=== PATIENT | male | born 1985 | race Caucasian/White ===

== ENCOUNTER 2017-09-20 15:32 | Emergency (ER) | payer SELFPAY ==
[~2017-09-20] VITALS: Ht 182.9 cm; Wt 68.2 kg
[~2017-09-20 15:32] MED LIST: CYCL10TA PO; GABA600T PO; SOMA350T PO; XANA2TAB2 PO
[2017-09-20 16:42] VITALS: BP 140/71; PULSE 98; RESP 20; TEMP 97.7; O2SAT 100
--- NOTE | 2017-09-20 21:37 | PD ---
Physical Exam Date Seen by Provider: Sep 20, 2017 Time Seen by Provider: 18:00 Narrative 32 year old male patient presents to the emergency department for evaluation of anxiety and dental pain. Patient states his daughter is in the pediatric unit and just had surgery which is making him anxious. He states that he has been out of his Xanax for a couple of weeks and has been unable to get a refill. Current pain is 9/10. Mild to moderate severity Data Data Last Documented VS Vital Signs Date Time Temp Pulse Resp B/P (MAP) Pulse Ox O2 Delivery O2 Flow Rate FiO2 09/20/17 16:42 97.7 98 20 140/71 (94) 100 MDM Supervised Visit with COLT: No Narrative Course 32-year-old male presents to the emergency department for evaluation of anxiety and dental pain. Patient is initially seen in triage. He left AGAINST MEDICAL ADVICE before he can be moved to medical bed. Diagnosis Primary Impression: Left against medical advice Patient Instructions: General Instructions Departure Forms: Tests/Procedures Disposition: 07 AGAINST MEDICAL ADVICE Brenda Mack Sep 20, 2017 21:36
[2017-09-21] MEDS ORDERED: VIST25CA PO (01:51)
[2017-09-21] MEDS ORDERED: PERI0.126 SWISH-SPIT (01:51)
== END 2017-09-20 18:24 | disposition left against medical advice (07) ==
LOC: NED 15:32
DX: F41.9 Anxiety disorder, unspecified (principal)
CPT/HCPCS: 99281

== ENCOUNTER 2017-09-20 23:40 | Emergency (ER) | payer SELFPAY ==
[~2017-09-20] VITALS: Ht 182.9 cm; Wt 68.0 kg
[2017-09-20 23:58] VITALS: BP 137/72; PULSE 90; RESP 16; TEMP 98.3; O2SAT 98
--- NOTE | 2017-09-21 01:42 | PD ---
HPI Chief Complaint: Anxiety Time Seen by Provider: 01:37 Travel History International Travel<30 days: No Contact w/Intl Traveler<30days: No Traveled to known affect area: No History of Present Illness HPI 32-year-old male with history of anxiety presents the emergency department requesting a refill of his Xanax. He states that he takes 2 mg 3 times a day, regularly even though it is supposed to be as needed. He tells me that his daughter is sick on the sixth floor and he is having panic attacks. He also reports multiple painful teeth and he needs something for pain for these. This includes 4 wisdom teeth and 2 other molars. Denies any trauma. States that the "just went bad yesterday." Denies any fevers or chills. Has no other symptoms to report. PFSH Past Medical History Anxiety: Yes Depression: Yes Diminished Hearing: No Musculoskeletal: Yes (HERNIATED DISC) Neurologic: Yes (back pain) Immunizations Current: No Seizures: Yes Tetanus Vaccination: < 5 Years Influenza Vaccination: Yes Past Surgical History Other Surgery: Yes (TBI) Social History Alcohol Use: No Tobacco Use: Yes (1/2 PPD) Substance Use: Yes Allergies-Medications (Allergen,Severity, Reaction): Coded Allergies: No Known Allergies (Unverified , 06/08/16) Reported Meds & Prescriptions Reported Meds & Active Scripts Active Vistaril (Hydroxyzine Pamoate) 25 Mg Cap 25 Mg PO QID PRN Peridex Liq (Chlorhexidine Gluconate (Mouth) Liq) 0.12% Soln 15 Ml SWISH-SPIT BID Reported Gabapentin 600 Mg Tab 600 Mg PO TID Soma (Carisoprodol) 350 Mg Tab 350 Mg PO BID Xanax (Alprazolam) 2 Mg Tab 2 Mg PO BID PRN Review of Systems Except as stated in HPI: all other systems reviewed are Neg Physical Exam Narrative GENERAL: Well-nourished, well-developed male patient, no acute distress. SKIN: Focused skin assessment warm/dry. HEAD: Normocephalic. No erythema or edema. EYES: No scleral icterus. No injection or drainage. DENTAL: Generalized poor dentition. No gingival erythema or edema. No malocclusion. NECK: Supple, trachea midline. No JVD or lymphadenopathy. CARDIOVASCULAR: Regular rate and rhythm without murmurs, gallops, or rubs. RESPIRATORY: Breath sounds equal bilaterally. No accessory muscle use. GASTROINTESTINAL: Abdomen soft, non-tender, nondistended. MUSCULOSKELETAL: No cyanosis, or edema. BACK: Nontender without obvious deformity. No CVA tenderness. Data Data Last Documented VS Vital Signs Date Time Temp Pulse Resp B/P (MAP) Pulse Ox O2 Delivery O2 Flow Rate FiO2 09/21/17 01:48 09/20/17 23:58 98.3 90 16 98 Room Air Orders Orders Ed Discharge Order (09/21/17 01:48) Ibuprofen (Motrin) (09/21/17 02:15) [facility] Medical Decision Making Medical Screen Exam Complete: Yes Emergency Medical Condition: Yes Medical Record Reviewed: Yes Differential Diagnosis Mood disorder versus personality disorder versus benzodiazepine dependence Narrative Course 32-year-old male presents to the emergency department for evaluation, requesting a refill of his Xanax, 2 mg by mouth 3 times a day. He also would like his teeth evaluated. Patient has generalized poor dentition. He has no obvious abscess or significant gingival erythema. He will be started on Peridex oral rinse. I will give him Vistaril for his anxiety but will not be refilling his Xanax prescription. His last dose was 2 days ago per his report. He will be discharged at this time. Diagnosis Primary Impression: Dental caries Additional Impression: Anxiety Referrals: Primary Care Physician Psychiatrist Patient Instructions: Anxiety (ED), Dental Caries (ED), General Instructions Additional Instructions: Follow-up with a primary care provider Seek psychiatry evaluation for your anxiety Return immediately with any acute worsening symptoms Med/Other Pt SpecificInfo: Prescription(s) given Scripts Hydroxyzine Pamoate (Vistaril) 25 Mg Cap 25 MG PO QID Y for ANXIETY AND/OR AGITATION, #20 CAP 0 Refills Prov: Aaliyah Rogers 09/21/17 Chlorhexidine Gluconate (Mouth) Liq (Peridex Liq) 0.12% Soln 15 ML SWISH-SPIT BID, #473 ML 0 Refills Prov: Aaliyah Rogers 09/21/17 Disposition: 01 DISCHARGE HOME Condition: Stable Aaliyah Rogers Sep 21, 2017 01:41
[2017-09-21] MEDS ORDERED: VIST25CA PO (01:51)
[2017-09-21] MEDS ORDERED: PERI0.126 SWISH-SPIT (01:51)
[2017-09-21] MEDS ORDERED: IBUPROFEN 800 MG TAB PO ONE (02:15)
[2017-09-22] MEDS ORDERED: PENI500T PO (03:49)
== END 2017-09-21 02:15 | disposition home or self-care (01) ==
LOC: NEPD 23:40
DX: K02.9 Dental caries, unspecified (principal); F41.9 Anxiety disorder, unspecified; F17.200 Nicotine dependence, unspecified, uncomplicated
CPT/HCPCS: 99281

== ENCOUNTER 2017-09-22 01:14 | Emergency (ER) | payer SELFPAY ==
[~2017-09-22] VITALS: Ht 182.9 cm; Wt 68.0 kg
[~2017-09-22 01:14] MED LIST changes: -CYCL10TA PO; +PERI0.126 SWISH-SPIT; +VIST25CA PO
[2017-09-22 01:19] VITALS: BP 97/50; PULSE 93; RESP 18; TEMP 98.4; O2SAT 98
--- NOTE | 2017-09-22 02:19 | PD ---
HPI Chief Complaint: Anxiety Time Seen by Provider: 02:17 Travel History International Travel<30 days: No Contact w/Intl Traveler<30days: No Traveled to known affect area: No History of Present Illness HPI The patient is a 32 year old male who presents to the [facility] emergency department with a history of severe anxiety and severe pain related to dental decay in his posterior teeth. The patient on my arrival to the room is sleeping soundly and had to be jostled to be awakened. The patient reports a long-standing history of anxiety which is worse recently because his child in the hospital. He reports that he is on Xanax for his anxiety and is followed by by Dr. Summers who prescribes this. He reports that he is due to see his physician again later in the month. The patient also reports having a long- standing history of dental pain. He reports that he is supposed to have his posterior teeth removed, however he has not been able to do so. He was just seen in the emergency department yesterday with both of these complaints and given a prescription for hydroxyzine and Peridex mouthwash, however he reports that it has not helped. The patient reports that he has made an appointment with the dentist, however they are booked up for the next 2 weeks. On review of systems otherwise, he denies any recent fevers, cough, congestion, neck pain , chest pain, shortness of breath, abdominal pain, vomiting, diarrhea, urinary symptoms, or neurologic symptoms. [facility] Past Medical History Narrative Medical The patient's past medical history is significant for anxiety disorder, dental decay, chronic back pain, history of herniated disc, history of depression, history of seizures. Anxiety: Yes Depression: Yes Diminished Hearing: No Musculoskeletal: Yes (HERNIATED DISC) Neurologic: Yes (back pain, TBI as a child) Immunizations Current: No Seizures: Yes Tetanus Vaccination: < 5 Years Influenza Vaccination: No Past Surgical History Surgical History: No Previous Surgery Other Surgery: Yes (TBI) Social History Alcohol Use: No Tobacco Use: Yes (06/15 PPD) Substance Use: No Allergies-Medications (Allergen,Severity, Reaction): Coded Allergies: No Known Allergies (Unverified Adverse Reaction, Unknown, 09/22/17) Reported Meds & Prescriptions Reported Meds & Active Scripts Active Vistaril (Hydroxyzine Pamoate) 25 Mg Cap 25 Mg PO QID PRN Peridex Liq (Chlorhexidine Gluconate (Mouth) Liq) 0.12% Soln 15 Ml SWISH-SPIT BID Reported Gabapentin 600 Mg Tab 600 Mg PO TID Soma (Carisoprodol) 350 Mg Tab 350 Mg PO BID Xanax (Alprazolam) 2 Mg Tab 2 Mg PO BID PRN Review of Systems Except as stated in HPI: all other systems reviewed are Neg General / Constitutional: No: Fever Eyes: No: Visual changes HENT: Positive: Dental Difficulties Cardiovascular: No: Chest Pain or Discomfort Respiratory: No: Shortness of Breath Gastrointestinal: No: Abdominal Pain Genitourinary: No: Dysuria Musculoskeletal: No: Pain Skin: No Rash Neurologic: No: Weakness, Focal Abnormalities, Change in Mentation, Slurred Speech, Sensory Disturbance Psychiatric: Positive: Anxiety, No: Suicidal Ideations, Homicidal Ideation Endocrine: No: Polydipsia Hematologic/Lymphatic: No: Easy Bruising Physical Exam Narrative General: The patient is a well-developed nourished male in no acute distress, sleeping soundly on my arrival to the room. Head and Neck exam: Head is normocephalic atraumatic. Eyes: EOMI, pupils are equal round and reactive to light. Nose: Midline septum with pink mucous membranes Mouth: The patient has dental decay and all of his molars in bilateral maxilla and bilateral mandible. The patient has gingival erythema and inflammation, no betina abscess formation. Moist mucus membranes. Posterior oropharynx is not erythematous. No tonsillar hypertrophy. Uvula midline. Airway patent. Neck: No palpable lymphadenopathy. No nuchal rigidity. No thyromegaly. Cardiovascular: Regular rate and rhythm without murmurs, gallops, or rubs. No pulse deficit to the extremities. Lungs: Clear to auscultation bilaterally. No wheezes, rhonchi, or rales. Abdomen: Soft, without tenderness to palpation in all 4 quadrants of the abdomen. No guarding, rebound, or rigidity. Normal bowel sounds are audible. No tenderness on palpation of McBurney's point Extremities: No clubbing, cyanosis, or edema. 2+ pulses in all 4 extremities. No calf tenderness on palpation peer Back: No costovertebral angle tenderness to palpation. Neurologic Exam: Grossly nonfocal. Skin Exam: No rash noted. Intact skin that is warm and dry. Data Data Last Documented VS Vital Signs Date Time Temp Pulse Resp B/P (MAP) Pulse Ox O2 Delivery O2 Flow Rate FiO2 09/22/17 01:19 98.4 93 18 97/50 (66) 98 Orders Orders Acetaminophen (Tylenol) (09/22/17 03:30) MDM Medical Decision Making Medical Screen Exam Complete: Yes Emergency Medical Condition: Yes Medical Record Reviewed: Yes Differential Diagnosis Anxiety disorder, versus panic disorder, versus drug-seeking behavior, versus gingivitis, versus dental abscess, versus dental decay Narrative Course During the course of the patient's emergency department visit, the patient's history, examination, and differential diagnosis were reviewed with the patient. The patient was instructed to continue on the medications that were previously prescribed and discuss being out of his usual Xanax with his physician that prescribes this on a regular basis. The patient was given Tylenol for pain. The patient will be given a prescription for penicillin for gingival inflammation associated with this dental decay. He was encouraged to follow-up with a dentist as soon as possible for definitive care. Diagnosis Primary Impression: Anxiety Additional Impressions: Dental decay Gingivitis Referrals: Dentist 2 days Primary Care Physician 1 day Patient Instructions: Anxiety (ED), Dental Caries (ED), General Instructions, Gingivitis (ED) Med/Other Pt SpecificInfo: Prescription(s) given Scripts Penicillin V Potassium (Penicillin V Potassium) 500 Mg Tab 500 MG PO Q8H for Infection for 10 Days, #30 TAB 0 Refills Prov: Glenna Del Real MD 09/22/17 Disposition: 01 DISCHARGE HOME Condition: Stable Glenna Del Real MD Sep 22, 2017 02:19
[2017-09-22] MEDS ORDERED: ACETAMINOPHEN 325 MG TAB PO ONE (03:30)
[2017-09-22] MEDS ORDERED: PENI500T PO (03:49)
== END 2017-09-22 04:21 | disposition home or self-care (01) ==
LOC: NEPE 01:14
DX: F41.9 Anxiety disorder, unspecified (principal); K02.9 Dental caries, unspecified; K05.10 Chronic gingivitis, plaque induced; F32.9 Major depressive disorder, single episode, unspecified; F17.200 Nicotine dependence, unspecified, uncomplicated; Z87.820 Personal history of traumatic brain injury; Z86.69 Personal history of other diseases of the nervous system and sense organs; Z79.899 Other long term (current) drug therapy
CPT/HCPCS: 99283